=== PATIENT | female | born 1960 | race African-American/Black ===

== ENCOUNTER 2016-10-11 17:24 | Emergency (ER) | payer MEDICAID ==
[~2016-10-11] VITALS: Ht 162.6 cm; Wt 99.8 kg
[2016-10-11] MEDS ORDERED: IBUP-1955 PO (17:42)
[2016-10-11] MEDS ORDERED: BUDE0.25 NEB (17:42)
[2016-10-11] MEDS ORDERED: ALBU8.5H8 INH (17:42)
[2016-10-11] MEDS ORDERED: MONT4TAB9 PO (17:42)
--- NOTE | 2016-10-11 18:03 | NUR ---
DR MEDINA AT THE BEDSIDE FOR EVAL AND EXAM.
[2016-10-11] MEDS ORDERED: HYDROCODONE/APAP 5-325MG TABLET PO ONE (18:15)
[2016-10-11] MEDS ORDERED: HYDROCODONE/APAP 5-325MG TABLET ONE (18:46)
--- NOTE | 2016-10-11 20:23 | NUR ---
Patient discharged to home in stable conditon WITH SON TAKING PATIENT HOME. Written and verbal after care instructions given. Patient verbalizes understanding of instructions. WALKED OUT OF ER WITH STEADY GAIT WITH NO DISTRESS NOTED
[2016-10-11 20:25] VITALS: BP 120/62
== END 2016-10-11 20:27 | disposition home or self-care (01) ==
LOC: ER 17:24
DX: S16.1XXA Strain of muscle, fascia and tendon at neck level, initial encounter (principal); M79.672 Pain in left foot; J45.909 Unspecified asthma, uncomplicated; M17.0 Bilateral primary osteoarthritis of knee; Z88.0 Allergy status to penicillin; Z79.899 Other long term (current) drug therapy; W01.0XXA Fall on same level from slipping, tripping and stumbling without subsequent striking against object, initial encounter; Y93.89 Activity, other specified; Y92.512 Supermarket, store or market as the place of occurrence of the external cause; Y99.8 Other external cause status
CPT/HCPCS: 72125; 73030; A4663